=== PATIENT | male | born 1955 | race Caucasian/White ===

== ENCOUNTER → 2017-09-19 | Day surgery (SDC) | payer MEDICAID ==
[~2017-09-19] VITALS: Ht 170.2 cm; Wt 113.1 kg
[~2017-09-19] MED LIST: *morphine SULFATE 8 MG/ML PERIprocedure ONLY ONE; ALLO100T PO; CANA300T PO; CHLORHEXIDINE GLUCONATE 2 % 1 PACK (2 CLOTHS) TOPICAL PRN; COLC1CAP3 PO; DO NOT ADM ANY ANTICOAGULANT DRUGS PRN; INSULIN HUMAN REGULAR 1,000 UNITS/10 ML VIAL SQ PRN; LACTATED RINGER'S 1000 ML IV PRN; LOSA100T PO; MAG-TAB PO; METOPROLOL TARTRATE 25 MG TAB PO PRN; OMEP20TA93 PO; ONDANSETRON HCL 4 MG/2 ML VIAL IV PUSH PRN; OXYC15TA PO; PANC1680 PO; PERC5TAB12 PO; POTA10CA PO; POVIDONE IODINE 5% (ANTISEPSIS KIT) 4 APPLICATIONS EACH NARE PRN; SODIUM CHLORID 0.9% 500 ML IV PRN; oxyCODONE/ACETAMINOPHEN 5 MG/325 MG TAB PO PRN
--- NOTE | 2017-09-19 08:10 | RADRPT ---
EXAM DATE/TIME: 09/19/2017 07:45 [place] COMPARISON: ABDOMEN KUB ONLY, July 12, 2016, 9:07. INDICATIONS : Pre-op lithotripsy. MEDICAL HISTORY : Diabetes mellitus type II. Hypertension SURGICAL HISTORY : None. ENCOUNTER: Initial ACUITY: 1 day PAIN SCORE: 4/10 LOCATION: abdomen FINDINGS: 2 supine frontal views of the abdomen demonstrate ovoid density overlying the left lower pole kidney measuring 9 x 6 mm. This previously measured 8 x 5 mm. No other definite abnormal densities are visua lized over the kidneys. Both kidneys are partially obscured by bowel gas. No abnormal densities are v isualized along the expected course of the ureters. There is a nonobstructed bowel gas pattern. Degenerative changes are present throughout the lumbar sp ine. CONCLUSION: There is a 9 x 6 mm density overlying the left lower pole kidney likely representing a renal stone. T his has enlarged from 8 x 5 mm previously. Luis Armando Cameron MD on September 19, 2017 at 8:07 Board Certified Radiologist. This report was verified electronically.
[2017-09-19 08:23] LABS: AUTOMATED NEUTROPHIL # 4.2 TH/MM3 (1.8-7.7); BASOPHIL % 0.5 % (0.0-2.0); EOSINOPHIL # 0.1 TH/MM3 (0-0.4); EOSINOPHIL % 1.3 % (0.0-4.0); HEMATOCRIT 44.4 % (39.0-51.0); HEMO FLAGS DIFF FINAL; LYMPH % 25.4 % (9.0-44.0); LYMPHOCYTE # 1.7 TH/MM3 (1.0-4.8); MEAN CELL VOLUME 91.2 FL (80.0-100.0); MEAN CORPUSCULAR HGB CONC 33.9 % (32.0-36.0); MONO % 9.7 % (0.0-8.0); NEUT % 63.1 % (16.0-70.0); PLATELET COUNT 163 TH/MM3 (150-450); RED BLOOD COUNT 4.87 MIL/MM3 (4.50-5.90); RED CELL DISTRIBUTION WIDTH 13.8 % (11.6-17.2); WHITE BLOOD COUNT 6.7 TH/MM3 (4.0-11.0)
--- NOTE | 2017-09-19 09:27 | EKG ---
Date Performed: 09/19/2017 Time Performed: 08:02:12 PTAGE: 62 years EKG: Sinus rhythm NONSPECIFIC T-WAVE ABNORMALITY BORDERLINE ECG PREVIOUS TRACING : 07/12/2016 09.12 DOCTOR: Tyshawn Araya Interpretating Date/Time 09/19/2017 09:26:31
--- NOTE | 2017-09-19 11:04 | PD.OP ---
Operative Report Date of Surgery: Sep 19, 2017 Preoperative Diagnosis: (1) Renal calculus, left Postoperative Diagnosis: (1) Renal calculus, left Procedure: Extracorporeal shockwave lithotripsy left renal calculus Anesthesia: General Surgeon: Zander Chaves Forester Silviculture(s): None Operation and Findings: Indication for procedure: Case of a pleasant 62-year-old gentleman with a 10 mm left lower pole renal calculus who presents now for extracorporeal shockwave lithotripsy. Operative procedure in detail: Patient was brought to the operating suite and placed supine on the OR table. He was then placed under general anesthesia. He then had his left lower pole renal calculus localized with fluoroscopy. Subsequent to this the patient received extracorporeal shockwave lithotripsy utilizing the [employer] 3000 device. The patient received a total of 3000 shocks with a maximum power level setting of 20. At conclusion of the procedure the stone was licensed psychologist manager in intensity and spread out consistent with fragmentation. He tolerated the procedure without complications and was transferred to the PACU in satisfactory condition. Zander Chaves MD Sep 19, 2017 11:04
[2017-09-19 13:28] VITALS: BP 125/81; PULSE 59; RESP 18; TEMP 97.4; O2SAT 97
== END | disposition home or self-care (01) ==
LOC: HSDC 07:20
PROVIDERS: ATTEND Urology
DX: N20.0 Calculus of kidney (principal); I10 Essential (primary) hypertension; E11.9 Type 2 diabetes mellitus without complications; Z79.84 Long term (current) use of oral hypoglycemic drugs
CPT/HCPCS: 00873; 50590; 74000; 85025; 93005; J2270; J7120